=== PATIENT | female | born 1945 | race African-American/Black ===

== ENCOUNTER → 2016-10-12 | Outpatient (CLI) | payer MEDICARE, OTHER ==
[~2016-10-12] MED LIST: ASTE137S5; AUGM500T7 PO; BACT2CRE TOP; CROM5.2S; DIPH2%T PO; DOXY150C PO; EPIP0.3I IM; FIBECHW2 PO; FLUC100T41 PO; LACT PO; LIPO-FLAVONOID AU; PREV30CA36 PO; PURE0.3D2 OU; ROSU5 PO; SALI1SPR8; SINUPOW; TAB-TAB PO; TYLE3 PO; [UNRECOGNIZED DRUG - CODE] INH
== END ==
LOC: CLAB 11:32
PROVIDERS: ATTEND General Practice
DX: R94.5 Abnormal results of liver function studies (principal)
CPT/HCPCS: 36415; 80074

== ENCOUNTER → 2016-11-29 | Outpatient (CLI) | payer MEDICARE, OTHER ==
[2016-11-29 10:28] LABS: ALKALINE PHOSPHATASE 90 U/L (45-117); ALT (GPT) 38 U/L (10-53); ANION GAP 5 MEQ/L (5-15); AST (GOT) 33 U/L (15-37); BICARBONATE 29.2 MEQ/L (21.0-32.0); BLOOD UREA NITROGEN 8 MG/DL (7-18); CHLORIDE 105 MEQ/L (98-107); GLOMERULAR FILTRATION RATE 67 ML/MIN (>89); GLUCOSE,FASTING 90 MG/DL (74-99); HDL CHOLESTEROL 85.4 MG/DL (40.0-60.0); LDL CHOLESTEROL 55 MG/DL (0-99); SODIUM (NA) 139 MEQ/L (136-145); TOTAL BILIRUBIN ADULT 0.3 MG/DL (0.2-1.0)
== END ==
LOC: CLAB 09:35
PROVIDERS: ATTEND General Practice
DX: E78.5 Hyperlipidemia, unspecified (principal); E55.9 Vitamin D deficiency, unspecified
CPT/HCPCS: 36415; 80053; 80061; 82306

== ENCOUNTER → 2016-12-28 | Outpatient (CLI) | payer MEDICARE, OTHER ==
[2016-12-28 14:03] LABS: ALT (GPT) 29 U/L (10-53); ANION GAP 3 MEQ/L (5-15); AST (GOT) 22 U/L (15-37); BLOOD UREA NITROGEN 7 MG/DL (7-18); CHLORIDE 108 MEQ/L (98-107); GLOMERULAR FILTRATION RATE 79 ML/MIN (>89); GLUCOSE,FASTING 84 MG/DL (74-99); POTASSIUM 3.8 MEQ/L (3.5-5.1); SODIUM (NA) 141 MEQ/L (136-145)
[2016-12-28 14:06] LABS: ALKALINE PHOSPHATASE 80 U/L (45-117); CREATINE KINASE 109 U/L (26-192); HDL CHOLESTEROL 85.7 MG/DL (40.0-60.0); LDL CHOLESTEROL 55 MG/DL (0-99); TOTAL BILIRUBIN ADULT 0.3 MG/DL (0.2-1.0)
== END ==
LOC: CLAB 13:06
PROVIDERS: ATTEND Internal Medicine Interventional Cardiology
DX: R06.02 Shortness of breath (principal); E78.5 Hyperlipidemia, unspecified; Z79.899 Other long term (current) drug therapy
CPT/HCPCS: 36415; 80053; 80061; 82248; 82550

== ENCOUNTER → 2017-03-03 | Outpatient (CLI) | payer MEDICARE, OTHER ==
[2017-03-03 14:24] LABS: HEMATOCRIT 33.8 % (35.0-46.0); MEAN CELL VOLUME 100.2 FL (80.0-100.0); MEAN CORPUSCULAR HEMOGLOBIN 32.5 PG (27.0-34.0); MEAN CORPUSCULAR HGB CONC 32.4 % (32.0-36.0); PLATELET COUNT 181 TH/MM3 (150-450); RED BLOOD COUNT 3.37 MIL/MM3 (4.00-5.30); REVIEW FLAG FINAL; WHITE BLOOD COUNT 6.8 TH/MM3 (4.0-11.0)
[2017-03-03 15:01] LABS: ALT (GPT) 33 U/L (10-53); ANION GAP 7 MEQ/L (5-15); AST (GOT) 26 U/L (15-37); BICARBONATE 28.5 MEQ/L (21.0-32.0); BLOOD UREA NITROGEN 8 MG/DL (7-18); CHLORIDE 107 MEQ/L (98-107); GLOMERULAR FILTRATION RATE 84 ML/MIN (>89); GLUCOSE,FASTING 83 MG/DL (74-99); POTASSIUM 3.4 MEQ/L (3.5-5.1); SODIUM (NA) 142 MEQ/L (136-145)
[2017-03-03 15:03] LABS: ALKALINE PHOSPHATASE 79 U/L (45-117); LDL CHOLESTEROL 51 MG/DL (0-99); TOTAL BILIRUBIN ADULT 0.4 MG/DL (0.2-1.0)
== END ==
LOC: CLAB 09:52
PROVIDERS: ATTEND General Practice
DX: E78.5 Hyperlipidemia, unspecified (principal)
CPT/HCPCS: 36415; 80053; 80061; 85027

== ENCOUNTER → 2017-03-17 | Outpatient (CLI) | payer MEDICARE, OTHER ==
[2017-03-17 13:46] LABS: POTASSIUM 3.5 MEQ/L (3.5-5.1)
[2017-03-17 13:52] LABS: TRANSFERRIN IRON PROFILE 196 MG/DL (200-360)
[2017-03-17 14:16] LABS: FERRITIN 151 NG/ML (8-252)
== END ==
LOC: CLAB 13:01
PROVIDERS: ATTEND General Practice
DX: D64.9 Anemia, unspecified (principal); E87.6 Hypokalemia
CPT/HCPCS: 36415; 82607; 82728; 82747; 83540; 83550; 84132

== ENCOUNTER → 2017-05-13 | Outpatient (CLI) | payer MEDICARE, OTHER ==
[~2017-05-13] MED LIST changes: +ALBUAER3 INH; +ASPI81TA11 PO; +FAMO40TA PO; +FLAX1300; +GABA300C5 PO; +MONT10TA4 PO; +MULTTAB67 PO; +RANI300T PO; +REST0.05 EACH EYE; +ROSU1TAB10 PO; +VITA100064 PO
[2017-05-13 11:51] LABS: ALT (GPT) 19 U/L (10-53); ANION GAP 5 MEQ/L (5-15); AST (GOT) 19 U/L (15-37); BICARBONATE 28.8 MEQ/L (21.0-32.0); BLOOD UREA NITROGEN 11 MG/DL (7-18); CHLORIDE 104 MEQ/L (98-107); GLOMERULAR FILTRATION RATE 72 ML/MIN (>89); GLUCOSE,FASTING 91 MG/DL (74-99); POTASSIUM 3.7 MEQ/L (3.5-5.1); SODIUM (NA) 138 MEQ/L (136-145)
[2017-05-13 11:54] LABS: ALKALINE PHOSPHATASE 87 U/L (45-117); CREATINE KINASE 235 U/L (26-192); HDL CHOLESTEROL 88.9 MG/DL (40.0-60.0); INDIRECT BILIRUBIN 0.4 MG/DL (0.0-0.8); LDL CHOLESTEROL 85 MG/DL (0-99); TOTAL BILIRUBIN ADULT 0.5 MG/DL (0.2-1.0)
[2017-05-13 12:59] LABS: CKMB 1.3 NG/ML (0.5-3.6)
== END ==
LOC: CLAB 10:57
PROVIDERS: ATTEND Internal Medicine Interventional Cardiology
DX: I25.10 Atherosclerotic heart disease of native coronary artery without angina pectoris (principal); E78.5 Hyperlipidemia, unspecified; Z79.899 Other long term (current) drug therapy; Z09 Encounter for follow-up examination after completed treatment for conditions other than malignant neoplasm
CPT/HCPCS: 36415; 80053; 80061; 82247; 82248; 82550; 82552

== ENCOUNTER → 2017-06-07 | Outpatient (CLI) | payer MEDICARE, OTHER ==
[2017-06-07 08:45] LABS: HEMATOCRIT 33.6 % (35.0-46.0); MEAN CELL VOLUME 101.3 FL (80.0-100.0); MEAN CORPUSCULAR HEMOGLOBIN 33.8 PG (27.0-34.0); MEAN CORPUSCULAR HGB CONC 33.4 % (32.0-36.0); PLATELET COUNT 203 TH/MM3 (150-450); RED BLOOD COUNT 3.32 MIL/MM3 (4.00-5.30); RED CELL DISTRIBUTION WIDTH 13.4 % (11.6-17.2); REVIEW FLAG FINAL; WHITE BLOOD COUNT 6.7 TH/MM3 (4.0-11.0)
[2017-06-07 09:26] LABS: ANION GAP 7 MEQ/L (5-15); BICARBONATE 28.2 MEQ/L (21.0-32.0); BLOOD UREA NITROGEN 14 MG/DL (7-18); CHLORIDE 103 MEQ/L (98-107); GLOMERULAR FILTRATION RATE 67 ML/MIN (>89); GLUCOSE,FASTING 91 MG/DL (74-99); SODIUM (NA) 138 MEQ/L (136-145)
[2017-06-07 09:27] LABS: AST (GOT) 17 U/L (15-37)
[2017-06-07 09:56] LABS: ALKALINE PHOSPHATASE 92 U/L (45-117); ALT (GPT) 20 U/L (10-53); HDL CHOLESTEROL 88.7 MG/DL (40.0-60.0); LDL CHOLESTEROL 53 MG/DL (0-99); TOTAL BILIRUBIN ADULT 0.4 MG/DL (0.2-1.0)
== END ==
LOC: CLAB 08:25
PROVIDERS: ATTEND General Practice
DX: R73.9 Hyperglycemia, unspecified (principal); E78.5 Hyperlipidemia, unspecified
CPT/HCPCS: 36415; 80053; 80061; 82607; 85027

== ENCOUNTER → 2017-06-24 | Outpatient (CLI) | payer MEDICARE, OTHER ==
[2017-06-24 12:18] LABS: HEMATOCRIT 32.5 % (35.0-46.0); MEAN CELL VOLUME 101.1 FL (80.0-100.0); MEAN CORPUSCULAR HEMOGLOBIN 33.4 PG (27.0-34.0); PLATELET COUNT 206 TH/MM3 (150-450); RED BLOOD COUNT 3.21 MIL/MM3 (4.00-5.30); RED CELL DISTRIBUTION WIDTH 13.9 % (11.6-17.2); REVIEW FLAG FINAL; WHITE BLOOD COUNT 6.6 TH/MM3 (4.0-11.0)
== END ==
LOC: CLAB 11:57
PROVIDERS: ATTEND General Practice
DX: R53.83 Other fatigue (principal)
CPT/HCPCS: 36415; 84443; 85027

== ENCOUNTER → 2017-07-04 | Outpatient (CLI) | payer MEDICARE, OTHER ==
[2017-07-04 11:34] LABS: ALT (GPT) 24 U/L (10-53); ANION GAP 4 MEQ/L (5-15); AST (GOT) 17 U/L (15-37); BICARBONATE 30.2 MEQ/L (21.0-32.0); BLOOD UREA NITROGEN 8 MG/DL (7-18); CHLORIDE 108 MEQ/L (98-107); GLOMERULAR FILTRATION RATE 76 ML/MIN (>89); GLUCOSE,FASTING 84 MG/DL (74-99); POTASSIUM 3.9 MEQ/L (3.5-5.1); SODIUM (NA) 142 MEQ/L (136-145)
[2017-07-04 11:37] LABS: ALKALINE PHOSPHATASE 77 U/L (45-117); CREATINE KINASE 132 U/L (26-192); HDL CHOLESTEROL 96.4 MG/DL (40.0-60.0); LDL CHOLESTEROL 38 MG/DL (0-99); TOTAL BILIRUBIN ADULT 0.3 MG/DL (0.2-1.0)
== END ==
LOC: CLAB 10:29
PROVIDERS: ATTEND Internal Medicine Interventional Cardiology
DX: I25.10 Atherosclerotic heart disease of native coronary artery without angina pectoris (principal); E78.5 Hyperlipidemia, unspecified; I65.29 Occlusion and stenosis of unspecified carotid artery; Z79.899 Other long term (current) drug therapy
CPT/HCPCS: 36415; 80053; 80061; 82248; 82550

== ENCOUNTER → 2017-07-26 | Outpatient (CLI) | payer MEDICARE, OTHER ==
[~2017-07-26] MED LIST changes: -ASTE137S5; -AUGM500T7 PO; -BACT2CRE TOP; -CROM5.2S; -DIPH2%T PO; -DOXY150C PO; -FIBECHW2 PO; -FLUC100T41 PO; -LACT PO; -PREV30CA36 PO; -PURE0.3D2 OU; -ROSU5 PO; -SALI1SPR8; -TAB-TAB PO; -TYLE3 PO; -[UNRECOGNIZED DRUG - CODE] INH
[2017-07-26 15:15] LABS: HEMATOCRIT 33.7 % (35.0-46.0); MEAN CELL VOLUME 101.4 FL (80.0-100.0); MEAN CORPUSCULAR HEMOGLOBIN 33.6 PG (27.0-34.0); MEAN CORPUSCULAR HGB CONC 33.2 % (32.0-36.0); PLATELET COUNT 197 TH/MM3 (150-450); RED BLOOD COUNT 3.33 MIL/MM3 (4.00-5.30); RED CELL DISTRIBUTION WIDTH 13.5 % (11.6-17.2); REVIEW FLAG FINAL; WHITE BLOOD COUNT 6.8 TH/MM3 (4.0-11.0)
[2017-07-26 15:33] LABS: ANION GAP 6 MEQ/L (5-15); AST (GOT) 20 U/L (15-37); BICARBONATE 28.4 MEQ/L (21.0-32.0); CHLORIDE 106 MEQ/L (98-107); GLOMERULAR FILTRATION RATE 73 ML/MIN (>89); GLUCOSE,FASTING 76 MG/DL (74-99); POTASSIUM 3.6 MEQ/L (3.5-5.1); SODIUM (NA) 140 MEQ/L (136-145)
[2017-07-26 15:51] LABS: ALKALINE PHOSPHATASE 83 U/L (45-117); ALT (GPT) 25 U/L (10-53); BLOOD UREA NITROGEN 9 MG/DL (7-18); HDL CHOLESTEROL 104.5 MG/DL (40.0-60.0); LDL CHOLESTEROL 41 MG/DL (0-99); TOTAL BILIRUBIN ADULT 0.5 MG/DL (0.2-1.0)
== END ==
LOC: CLAB 14:35
PROVIDERS: ATTEND General Practice
DX: E78.5 Hyperlipidemia, unspecified (principal)
CPT/HCPCS: 36415; 80053; 80061; 85027

== ENCOUNTER → 2017-10-10 | Outpatient (CLI) | payer MEDICARE, OTHER ==
[~2017-10-10] MED LIST changes: -ASPI81TA11 PO; +ASPI81TA23 PO; +CHOL5000 PO; -FAMO40TA PO; -GABA300C5 PO; +LANS30CA PO; -RANI300T PO; -ROSU1TAB10 PO; +ROSU40 PO; -VITA100064 PO
[2017-10-10 11:07] LABS: AUTOMATED NEUTROPHIL # 3.1 TH/MM3 (1.8-7.7); BASOPHIL # 0.1 TH/MM3 (0-0.2); EOSINOPHIL # 0.1 TH/MM3 (0-0.4); EOSINOPHIL % 0.8 % (0.0-4.0); HEMATOCRIT 33.5 % (35.0-46.0); HEMOGLOBIN 11.2 GM/DL (11.6-15.3); LYMPH % 41.4 % (9.0-44.0); LYMPHOCYTE # 2.6 TH/MM3 (1.0-4.8); MEAN CELL VOLUME 101.3 FL (80.0-100.0); MEAN CORPUSCULAR HGB CONC 33.6 % (32.0-36.0); MEAN PLATELET VOLUME 7.6 FL (7.0-11.0); MONO % 6.5 % (0.0-8.0); MONOCYTE # 0.4 TH/MM3 (0-0.9); NEUT % 50.3 % (16.0-70.0); PLATELET COUNT 220 TH/MM3 (150-450); RED BLOOD COUNT 3.31 MIL/MM3 (4.00-5.30); RED CELL DISTRIBUTION WIDTH 14.3 % (11.6-17.2); WHITE BLOOD COUNT 6.2 TH/MM3 (4.0-11.0)
[2017-10-10 11:21] LABS: ALBUMIN 3.6 GM/DL (3.4-5.0); AST (GOT) 19 U/L (15-37); BICARBONATE 30.3 MEQ/L (21.0-32.0); BLOOD UREA NITROGEN 10 MG/DL (7-18); CALCIUM 9.4 MG/DL (8.5-10.1); CHLORIDE 104 MEQ/L (98-107); CREATININE 0.89 MG/DL (0.50-1.00); GLOMERULAR FILTRATION RATE 75 ML/MIN (>89); GLUCOSE,FASTING 83 MG/DL (74-99); SODIUM (NA) 140 MEQ/L (136-145)
[2017-10-10 11:22] LABS: ALT (GPT) 19 U/L (10-53)
[2017-10-10 11:24] LABS: ALKALINE PHOSPHATASE 83 U/L (45-117); TOTAL BILIRUBIN ADULT 0.3 MG/DL (0.2-1.0)
== END ==
LOC: CLAB 09:41
PROVIDERS: ATTEND Family Medicine
DX: R63.0 Anorexia (principal); D64.9 Anemia, unspecified; E55.9 Vitamin D deficiency, unspecified
CPT/HCPCS: 36415; 80053; 82306; 85025

== ENCOUNTER → 2017-11-23 | Outpatient (CLI) | payer MEDICARE, OTHER ==
[~2017-11-23] MED LIST changes: +VITA500012 PO
[2017-11-23 09:15] LABS: ALBUMIN 3.5 GM/DL (3.4-5.0); AST (GOT) 16 U/L (15-37); BICARBONATE 28.7 MEQ/L (21.0-32.0); BLOOD UREA NITROGEN 11 MG/DL (7-18); CALCIUM 9.4 MG/DL (8.5-10.1); CHLORIDE 105 MEQ/L (98-107); CREATININE 0.96 MG/DL (0.50-1.00); GLOMERULAR FILTRATION RATE 69 ML/MIN (>89); GLUCOSE,FASTING 89 MG/DL (74-99); SODIUM (NA) 140 MEQ/L (136-145)
[2017-11-23 09:16] LABS: CHOLESTEROL 150 MG/DL (120-200)
[2017-11-23 09:20] LABS: ALKALINE PHOSPHATASE 85 U/L (45-117); ALT (GPT) 18 U/L (10-53); CHOLESTEROL/ HDL RATIO 1.68 RATIO; DIRECT BILIRUBIN ADULT 0.1 MG/DL (0.0-0.2); LDL CHOLESTEROL 54 MG/DL (0-99); TOTAL BILIRUBIN ADULT 0.3 MG/DL (0.2-1.0); TOTAL PROTEIN 7.9 GM/DL (6.4-8.2); TRIGLYCERIDES 36 MG/DL (42-150)
== END ==
LOC: CLAB 08:19
PROVIDERS: ATTEND Internal Medicine Interventional Cardiology
DX: R06.02 Shortness of breath (principal); E78.5 Hyperlipidemia, unspecified; Z79.899 Other long term (current) drug therapy
CPT/HCPCS: 36415; 80053; 80061; 82248; 82550

== ENCOUNTER → 2018-01-02 | Outpatient (CLI) | payer MEDICARE, OTHER ==
[2018-01-02 15:45] LABS: ALBUMIN 3.3 GM/DL (3.4-5.0); ALT (GPT) 17 U/L (10-53); AST (GOT) 16 U/L (15-37); BLOOD UREA NITROGEN 8 MG/DL (7-18); CALCIUM 9.3 MG/DL (8.5-10.1); CHLORIDE 107 MEQ/L (98-107); GLUCOSE,FASTING 80 MG/DL (74-99); SODIUM (NA) 141 MEQ/L (136-145)
[2018-01-02 15:46] LABS: CHOLESTEROL 154 MG/DL (120-200); CREATININE 0.92 MG/DL (0.50-1.00); GLOMERULAR FILTRATION RATE 73 ML/MIN (>89)
[2018-01-02 15:55] LABS: ALKALINE PHOSPHATASE 82 U/L (45-117); CHOLESTEROL/ HDL RATIO 1.71 RATIO; DIRECT BILIRUBIN ADULT 0.1 MG/DL (0.0-0.2); HDL CHOLESTEROL 89.7 MG/DL (40.0-60.0); LDL CHOLESTEROL 52 MG/DL (0-99); TOTAL BILIRUBIN ADULT 0.3 MG/DL (0.2-1.0); TOTAL PROTEIN 7.8 GM/DL (6.4-8.2); TRIGLYCERIDES 61 MG/DL (42-150)
== END ==
LOC: CLAB 14:33
PROVIDERS: ATTEND Internal Medicine Interventional Cardiology
DX: I25.10 Atherosclerotic heart disease of native coronary artery without angina pectoris (principal); E78.5 Hyperlipidemia, unspecified; Z79.899 Other long term (current) drug therapy
CPT/HCPCS: 36415; 80053; 80061; 82248; 82550

== ENCOUNTER 2018-02-24 23:24 | Emergency (ER) | payer MEDICARE, OTHER ==
[2018-02-24 23:34] VITALS: BP 146/70; PULSE 82; RESP 18; TEMP 98.4; O2SAT 100
--- NOTE | 2018-02-24 23:50 | PD ---
HPI Chief Complaint: Abdominal Pain Time Seen by Provider: 23:50 Travel History International Travel<30 days: No Contact w/Intl Traveler<30days: No Traveled to known affect area: No History of Present Illness HPI Comes in complaining of right flank pain radiating to her right lower quadrant area for the past 2-3 weeks. Described as sharp, intermittent, radiating, 8 out of 10, not associated with any fever nausea vomiting or diarrhea. Patient denies any alleviating or aggravating factors. Patient denies any associated factors such as fever, dysuria, urgency, frequency, hematuria, or any nausea vomiting or diarrhea. Patient states she has multiple allergies please see above Past medical history significant for CHF, hypertension, sleep apnea, asthma, hiatal hernia, cholecystectomy umbilical hernia, orthopedic surgery arthritis and GERD PFS Past Medical History Cancer: No Cardiovascular Problems: Yes (CHF) Diabetes: No Diminished Hearing: No Glaucoma: No Hepatitis: No Hiatal Hernia: Yes Hypertension: Yes Medical other: Yes (ARTHRITIS, GERD) Respiratory: Yes (SLEEP APNEA) Immunizations Current: Yes Thyroid Disease: No Past Surgical History Abdominal Surgery: Yes (CHOLECYSTECTOMY 10/2003, UMBILICAL HERNIA 11/2006) Cardiac Surgery: No Ear Surgery: No Endocrine Surgery: No Eye Surgery: No Genitourinary Surgery: No Gynecologic Surgery: No Oral Surgery: No Pacemaker: No Thoracic Surgery: No Social History Alcohol Use: No Tobacco Use: No Substance Use: No Allergies-Medications (Allergen,Severity, Reaction): Coded Allergies: Beef Containing Products (Verified Allergy, Severe, 02/25/18) adhesive (Verified Allergy, Severe, 02/25/18) atenolol (Verified Allergy, Severe, 02/25/18) bacitracin (Verified Allergy, Severe, 02/25/18) banana (Verified Allergy, Severe, 02/25/18) benzocaine (Verified Allergy, Severe, ANAPHLYAXIS, 02/25/18) bupivacaine (Verified Allergy, Severe, ANAPHLYAXIS, 02/25/18) diclofenac (Verified Allergy, Severe, 02/25/18) PT'S TAKING ASA AT HOME W/O PROBLEM ethyl chloride (Verified Allergy, Severe, ANAPHLYAXIS, 02/25/18) fluticasone (Verified Allergy, Severe, 02/25/18) fluticasone furoate (Verified Allergy, Severe, 02/25/18) hydrocortisone (Verified Allergy, Severe, 02/25/18) lidocaine (Verified Allergy, Severe, ANAPHLYAXIS, 02/25/18) mometasone furoate (Verified Allergy, Severe, 02/25/18) neomycin (Verified Allergy, Severe, 02/25/18) omeprazole (Verified Allergy, Severe, 02/25/18) polymyxin B (Verified Allergy, Severe, 02/25/18) prednisone (Verified Allergy, Severe, 02/25/18) pseudoephedrine (Verified Allergy, Severe, 02/25/18) quinapril (Verified Allergy, Severe, 02/25/18) ropivacaine (Verified Allergy, Severe, ANAPHLYAXIS, 02/25/18) salmeterol (Verified Allergy, Severe, 02/25/18) Reported Meds & Prescriptions Reported Meds & Active Scripts Active Ergocalciferol 50,000 Unit Cap 50,000 Units PO Q7D Proair Hfa 8.5 GM Inh (Albuterol Sulfate) 90 Mcg/Act Aer 2 Puff INH Q4-6H PRN 108 mcg/actuation Reported Vitamin D3 (Cholecalciferol) 5,000 Unit Cap 5,000 Units PO DAILY Lansoprazole 30 Mg Capdr 30 Mg PO DAILY Crestor (Rosuvastatin Calcium) 40 Mg Tab 40 Mg PO DAILY Restasis Opth (Cyclosporine Opth) 0.05% Emul 1 Drop EACH EYE BID Epipen 2-Pietro Inj (Epinephrine) 0.3 Mg/0.3 Ml Pfpen 0.3 Mg IM ONCE PRN Multiple Vitamin 1 Tab 1 Tab PO DAILY Montelukast (Montelukast Sodium) 10 Mg Tab 10 Mg PO HS Aspirin EC (Aspirin) 81 Mg Tabdr 81 Mg PO DAILY Flax Seed Oil 1300 mg (Flaxseed (Linseed)) 1,300-670MG Cap [Lipo-Flavonoid] 1 Drop AU DAILY [Sinus Rinse] NA PRN Review of Systems General / Constitutional: No: Fever Eyes: No: Visual changes HENT: No: Headaches Cardiovascular: No: Chest Pain or Discomfort Respiratory: No: Shortness of Breath Gastrointestinal: No: Abdominal Pain Genitourinary: Positive: Flank Pain Musculoskeletal: No: Pain Skin: No Rash Neurologic: No: Weakness Psychiatric: No: Depression Endocrine: No: Polydipsia Hematologic/Lymphatic: No: Easy Bruising Physical Exam Narrative GENERAL: SKIN: Warm and dry. HEAD: Atraumatic. Normocephalic. EYES: Pupils equal and round. No scleral icterus. No injection or drainage. ENT: No nasal bleeding or discharge. Mucous membranes pink and moist. NECK: Trachea midline. No JVD. CARDIOVASCULAR: Regular rate and rhythm. RESPIRATORY: No accessory muscle use. Clear to auscultation. Breath sounds equal bilaterally. GASTROINTESTINAL: Abdomen soft, RLQ TTP, nondistended. MUSCULOSKELETAL: Extremities without clubbing, cyanosis, or edema. No obvious deformities. NEUROLOGICAL: Awake and alert. No obvious cranial nerve deficits. Motor grossly within normal limits. Five out of 5 muscle strength in the arms and legs. Normal speech. PSYCHIATRIC: Appropriate mood and affect; insight and judgment normal. Data Data Last Documented VS Vital Signs Date Time Temp Pulse Resp B/P (MAP) Pulse Ox O2 Delivery O2 Flow Rate FiO2 02/24/18 23:34 98.4 82 18 146/70 (95) 100 Orders Orders Complete Blood Count With Diff (02/25/18 00:04) Comprehensive Metabolic Panel (02/25/18 00:04) Lipase (02/25/18 00:04) Urinalysis - C+S If Indicated (02/25/18 00:04) Ct Abd/Pel W/O Iv Contrast (02/25/18 00:04) Iv Access Insert/Monitor (02/25/18 00:04) Ecg Monitoring (02/25/18 00:04) Oximetry (02/25/18 00:04) NPO (02/25/18 00:04) Sodium Chloride 0.9% Flush (Ns Flush) (02/25/18 00:15) Electrocardiogram (02/25/18 00:04) Ketorolac Inj (Toradol Inj) (02/25/18 00:15) Urine Culture (02/25/18 01:11) Labs Laboratory Tests Test 02/25/18 00:48 02/25/18 01:11 White Blood Count 8.5 TH/MM3 Red Blood Count 3.10 MIL/MM3 Hemoglobin 10.4 GM/DL Hematocrit 31.0 % Mean Corpuscular Volume 100.0 FL Mean Corpuscular Hemoglobin 33.7 PG Mean Corpuscular Hemoglobin Concent 33.7 % Red Cell Distribution Width 14.6 % Platelet Count 188 TH/MM3 Mean Platelet Volume 7.6 FL Neutrophils (%) (Auto) 59.2 % Lymphocytes (%) (Auto) 29.9 % Monocytes (%) (Auto) 9.4 % Eosinophils (%) (Auto) 1.0 % Basophils (%) (Auto) 0.5 % Neutrophils # (Auto) 5.0 TH/MM3 Lymphocytes # (Auto) 2.5 TH/MM3 Monocytes # (Auto) 0.8 TH/MM3 Eosinophils # (Auto) 0.1 TH/MM3 Basophils # (Auto) 0.0 TH/MM3 CBC Comment DIFF FINAL Differential Comment Blood Urea Nitrogen 12 MG/DL Creatinine 0.91 MG/DL Random Glucose 85 MG/DL Total Protein 7.6 GM/DL Albumin 3.3 GM/DL Calcium Level 9.3 MG/DL Alkaline Phosphatase 77 U/L Aspartate Amino Transf (AST/SGOT) 18 U/L Alanine Aminotransferase (ALT/SGPT) 17 U/L Total Bilirubin 0.3 MG/DL Sodium Level 142 MEQ/L Potassium Level 3.6 MEQ/L Chloride Level 106 MEQ/L Carbon Dioxide Level 28.1 MEQ/L Anion Gap 8 MEQ/L Estimat Glomerular Filtration Rate 74 ML/MIN Lipase 191 U/L Urine Color YELLOW Urine Turbidity CLEAR Urine pH 5.5 Urine Specific [place]agland 1.015 Urine Protein TRACE mg/dL Urine Glucose (UA) NEG mg/dL Urine Ketones NEG mg/dL Urine Occult Blood NEG Urine Nitrite NEG Urine Bilirubin NEG Urine Urobilinogen LESS THAN 2.0 MG/DL Urine Leukocyte Esterase LARGE Urine RBC 2 /hpf Urine WBC 14 /hpf Urine Squamous Epithelial Cells 2 /hpf Urine Transitional Epithelial Cells <1 /hpf Urine Bacteria RARE /hpf Urine Hyaline Casts 2 /lpf Urine Mucus FEW /lpf Microscopic Urinalysis Comment CULTURE INDICATED MDM Medical Decision Making Medical Screen Exam Complete: Yes Emergency Medical Condition: Yes Medical Record Reviewed: Yes Interpretation(s) EKG shows normal sinus rhythm, 74 bpm, normal intervals, some nonspecific ST-T wave changes, but no evidence of any ST elevation OK pattern Differential Diagnosis Shingles versus pancreatitis versus colitis versus diverticulitis versus appendicitis versus kidney stone Narrative Course CBC no evidence of any leukocytosis, mild anemia 08/02, normal platelet count, no left shift. Elect lites are all within normal limits, normal kidney liver and pancreatic functions UA is consistent with a UTI CT read by radiologist shows mild S-shaped thoracolumbar curvature, however no obstruction acute inflammatory changes or acute abnormality demonstrated within the abdomen or pelvis. Sigmoid colon diverticulosis but without diverticulitis Diagnosis Primary Impression: UTI Additional Impressions: Diverticulosis Scoliosis Patient Instructions: Diverticulosis (ED), General Instructions, Scoliosis in Children (DC), Urinary Tract Infection in Women (DC) Departure Forms: Tests/Procedures Scripts Nitrofurantoin Monohydrate Macrocrystals (Macrobid) 100 Mg Capsule 100 MG PO BID for Infection for 7 Days, #14 CAP 0 Refills Prov: Gonzales Medel MD 02/25/18 Tramadol (Ultram) 50 Mg Tab 50 MG PO Q6H Y for PAIN, #14 TAB 0 Refills Prov: Gonzales Medel MD 02/25/18 Disposition: 01 DISCHARGE HOME Condition: Stable Gonzales Medel MD February 24, 2018 23:50
[2018-02-25] MEDS ORDERED: KETOROLAC TROMETHAMINE 30 MG/ML (IVP) VIAL IVP ONE (00:15)
[2018-02-25] MEDS ORDERED: SODIUM CHLORIDE 0.9% FLUSH 10 ML FLUSH IV FLUSH PRN (00:15)
--- NOTE | 2018-02-25 00:35 | RADRPT ---
EXAM DATE: 02/25/2018 12:24 AM EDT AGE/SEX: 72 years / Female INDICATIONS: Low back pain. CLINICAL DATA: This is the patient's initial encounter. Patient reports that signs and symptoms have been present for 1 day and indicates a pain score of 7/10. MEDICAL/SURGICAL HISTORY: Hypertension. Hiatal hernia. Umbilical hernia. Umbilical hernia rep air. Cholecystectomy. RADIATION DOSE: 9.76 CTDI (mGy) COMPARISON: T[facility], CT ABDOMEN AND PELVIS W/O CONTRAST, 01/27/2016. . TECHNIQUE: Multiple contiguous axial images were obtained through the abdomen. Images were obtained using multiple row detector helical technique. Using dose reduction techniques, radiation dose was ke pt as low as reasonably achievable to obtain optimal diagnostic quality images. FINDINGS: Numerous hepatic cysts and/or hemangiomas are again noted measuring up to 2.8 cm in size. No ductal d ilatation. Previous cholecystectomy. Noncontrast appearance of the spleen, pancreas, adrenal glands and kidneys within normal limits. No s tones or obstructive uropathy demonstrated. No obstruction or acute inflammatory changes seen of the gastrointestinal tract. Normal appendix. The re is diverticulosis of the sigmoid colon without diverticulitis. Surgical changes of ventral hernia repair again noted and unchanged in CT appearance. No free fluid or free air. No acute bony abnormality demonstrated. Mild S shaped thoracolumbar curvat ure noted. There is multilevel disc space narrowing. Mild atelectasis seen of the visualized lung bases. CONCLUSION: 1. No obstruction, acute inflammatory changes or other acute abnormality demonstrated within the abd omen or pelvis. 2. Scattered benign hepatic hypodensities are unchanged. 3. Surgical changes include ventral hernia repair and cholecystectomy. 4. Sigmoid colon diverticulosis. No diverticulitis. Electronically signed by: Froylan Presley MD 02/25/2018 12:34 AM EDT
[2018-02-25 01:02] LABS: BASOPHIL % 0.5 % (0.0-2.0); EOSINOPHIL # 0.1 TH/MM3 (0-0.4); HEMOGLOBIN 10.4 GM/DL (11.6-15.3); LYMPH % 29.9 % (9.0-44.0); LYMPHOCYTE # 2.5 TH/MM3 (1.0-4.8); MEAN CORPUSCULAR HEMOGLOBIN 33.7 PG (27.0-34.0); MEAN CORPUSCULAR HGB CONC 33.7 % (32.0-36.0); MEAN PLATELET VOLUME 7.6 FL (7.0-11.0); MONO % 9.4 % (0.0-8.0); MONOCYTE # 0.8 TH/MM3 (0-0.9); NEUT % 59.2 % (16.0-70.0); PLATELET COUNT 188 TH/MM3 (150-450); RED CELL DISTRIBUTION WIDTH 14.6 % (11.6-17.2); WHITE BLOOD COUNT 8.5 TH/MM3 (4.0-11.0)
[2018-02-25 01:30] LABS: ALBUMIN 3.3 GM/DL (3.4-5.0); ALT (GPT) 17 U/L (10-53); AST (GOT) 18 U/L (15-37); BICARBONATE 28.1 MEQ/L (21.0-32.0); BLOOD UREA NITROGEN 12 MG/DL (7-18); CALCIUM 9.3 MG/DL (8.5-10.1); CHLORIDE 106 MEQ/L (98-107); CREATININE 0.91 MG/DL (0.50-1.00); GLOMERULAR FILTRATION RATE 74 ML/MIN (>89); GLUCOSE,RANDOM 85 MG/DL (74-106); SODIUM (NA) 142 MEQ/L (136-145)
[2018-02-25 01:33] LABS: ALKALINE PHOSPHATASE 77 U/L (45-117); TOTAL BILIRUBIN ADULT 0.3 MG/DL (0.2-1.0); TOTAL PROTEIN 7.6 GM/DL (6.4-8.2)
[2018-02-25 01:36] LABS: BACTERIA, URINE RARE /hpf; BILIRUBIN, URINE NEG (NEG); BLOOD, URINE NEG (NEG); GLUCOSE,URINE NEG (NEG); HYALINE CAST, URINE 2 /lpf (RARE); KETONE, URINE NEG (NEG); MUCUS URINE FEW /lpf (OCC); NITRITE,URINE NEG (NEG); PH, URINE 5.5 (5.0-8.5); SQUAMOUS EPITHELIAL CELL URINE 2 /hpf (0-5); TRANSITIONAL EPI CELLS, URINE <1 /hpf; URINE COLOR YELLOW (YELLW/STRAW); URINE LEUKOCYTE ESTERASE LARGE (NEG)
[2018-02-25] MEDS ORDERED: MACR100C2 PO (02:13)
[2018-02-25] MEDS ORDERED: TRAM50 PO (02:13)
--- NOTE | 2018-02-25 15:01 | EKG ---
Date Performed: 02/25/2018 Time Performed: 00:43:08 PTAGE: 72 years EKG: Sinus rhythm NORMAL ECG Since PREVIOUS TRACING , no significant change noted PREVIOUS TRACIN02/25/2009 14.00 DOCTOR: Richard Maharaj Interpretating Date/Time 02/25/2018 14:59:48
== END 2018-02-25 02:53 | disposition home or self-care (01) ==
LOC: NEPC 23:24
DX: N39.0 Urinary tract infection, site not specified (principal); K57.30 Diverticulosis of large intestine without perforation or abscess without bleeding; M41.9 Scoliosis, unspecified; I11.0 Hypertensive heart disease with heart failure; I50.9 Heart failure, unspecified
CPT/HCPCS: 74176; 80053; 81001; 83690; 85025; 87086; 93005; 96374; 99285; J1885

== ENCOUNTER → 2018-03-06 | Outpatient (CLI) | payer MEDICARE, OTHER ==
[~2018-03-06] MED LIST changes: +MACR100C2 PO; +TRAM50 PO
[2018-03-06 12:16] LABS: IRON (FE) 49 MCG/DL (50-170)
[2018-03-06 12:42] LABS: FERRITIN 157 NG/ML (8-252); TOTAL IRON BINDING CAPACITY 288 MCG/DL (250-450)
[2018-03-06 12:43] LABS: FOLATE GREATER THAN 20.0 NG/ML (3.1-17.5)
== END ==
LOC: CLAB 11:19
PROVIDERS: ATTEND Physician Assistant Medical
DX: D64.9 Anemia, unspecified (principal)
CPT/HCPCS: 36415; 82607; 82728; 82746; 83540; 83550